=== PATIENT | male | born 2005 | race Hispanic/Latino ===

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

== ENCOUNTER 2023-10-23 17:23 | Emergency (ER) | payer MEDICAID, OTHER ==
[~2023-10-23] VITALS: Ht 182.9 cm; Wt 54.4 kg
[2023-10-23 17:30] VITALS: BP 129/82; PULSE 102; RESP 18
[2023-10-23] MEDS: KETOROLAC 30MG VIAL (30MG/ML) IM ONE (19:08)
[2023-10-23] MEDS: CYCLOBENZAPRINE HCL 10 MG TABLET PO ONE (19:08)
[2023-10-23] MEDS ORDERED: IBUP-2070 PO (19:23)
[2023-10-23] MEDS ORDERED: CYCL10TA16 PO (19:23)
== END 2023-10-23 19:47 | disposition home or self-care (01) ==
LOC: EDH 17:23
DX: S29.012A Strain of muscle and tendon of back wall of thorax, initial encounter (principal); Z79.899 Other long term (current) drug therapy; Z98.890 Other specified postprocedural states; X58.XXXA Exposure to other specified factors, initial encounter; Y93.89 Activity, other specified; Y92.89 Other specified places as the place of occurrence of the external cause; Y99.8 Other external cause status
CPT/HCPCS: 99283; 71045; 96372; J1885